=== PATIENT | female | born 1960 | race American Indian/Alaskan Native ===

== ENCOUNTER 2021-05-20 20:02 | Emergency (ER) | payer SELFPAY ==
[2021-05-20 20:30] VITALS: BP 120/85; PULSE 71; RESP 15; TEMP 36.6; O2SAT 96; BMI 33.2
--- NOTE | 2021-05-20 20:33 | DI.RAD.S_ITS ---
PROCEDURE: XR KNEE LT 3V INDICATIONS: fall onto knee TECHNIQUE: 3 views of the knee were acquired. COMPARISON: [facility], , KNEE 3V LEFT, 04/11/2009, 23:11. FINDINGS: New acute comminuted fracture of the patella. Femur hardware is not significantly changed from the prior study with no new acute complicating hardware feature. Moderate-sized joint effusion. IMPRESSION: New and acute comminuted fracture of the patella with associated joint effusion. Dictated by: Shaq Cortez M.D. on 05/20/2021 at 21:28 Approved by: Shaq Cortez M.D. on 05/20/2021 at 21:30
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
[2021-05-21] MEDS: OXYCODONE/ACETAMINOPHEN 5/325 TABLET 1 TAB PO (01:49)
[2021-05-21] MEDS: IBUPROFEN 400 MG TABLET PO (01:50)
[2021-05-21] MEDS: OXYCODONE/APAP 5/325 PREPACK 1 BOTTLE MISC (02:32)
[2021-05-21 02:49] VITALS: BP 180/85; PULSE 85; RESP 18; O2SAT 97
== END 2021-05-21 02:50 | disposition home or self-care (01) ==
PROVIDERS: Emergency Provider Emergency Medicine
DX: S82.045A Nondisplaced comminuted fracture of left patella, initial encounter for closed fracture (principal); W19.XXXA Unspecified fall, initial encounter
CPT/HCPCS: 73562; 99283